=== PATIENT | female | born 1990 | race Caucasian/White ===

== ENCOUNTER 2024-01-02 23:24 | Inpatient (IN) | payer BC ==
[2024-01-02] MEDS ORDERED: Oxytocin/0.9 % Sodium Chloride 30 UNIT/500 ML BAG IV SCH (23:45)
[2024-01-02] MEDS ORDERED: Carboprost Tromethamine 250 MCG/1 mL Vial IM PRN (23:52)
[2024-01-02] MEDS ORDERED: Sodium Chloride 0.9% 2.5 ML Syringe FLUSH PRN (23:52)
[2024-01-02] MEDS ORDERED: Sodium Chloride 0.9% 20 ML SDV IV PRN (23:52)
[2024-01-02] MEDS ORDERED: Sodium Chloride 0.9% 10 ML Syringe FLUSH PRN (23:52)
[2024-01-02] MEDS ORDERED: Lidocaine 1% 50 ML MDV INJECT PRN (23:52)
[2024-01-02] MEDS ORDERED: Water For Irrigation,Sterile 1,000 ML Container IRR PRN (23:52)
[2024-01-02] MEDS ORDERED: Methylergonovine 0.2 MG/1 ML Amp IM PRN (23:52)
[2024-01-02] MEDS ORDERED: Ondansetron 4 MG/2 ML SDV IVPUSH PRN (23:52)
[2024-01-02] MEDS ORDERED: Terbutaline 1 MG/ML SDV SUBCUT PRN (23:52)
[2024-01-02] MEDS ORDERED: Misoprostol 200 MCG Tab PO PRN (23:52)
[2024-01-02] MEDS ORDERED: Tranexamic Acid IN NACL,ISO-OS 1,000 MG in Premix Bag 1 BAG IV PRN (23:52)
[2024-01-03] MEDS: Lactated Ringers 1,000 ML IV SCH (00:43)
[2024-01-03] MEDS: Ampicillin 2 GM in Sodium Chloride 0.9% 100 ML IV ONE (00:43)
[2024-01-03 01:31] LABS: HEMATOCRIT 38.8 % (37.0-47.0); HEMOGLOBIN 13.7 g/dL (12.0-16.0); MEAN CORPUSCULAR HEMOGLOBIN 34.4 pg (28.0-32.0); MEAN CORPUSCULAR HGB CONC 35.3 g/dL (32.0-36.0); MEAN CORPUSCULAR VOLUME 97.5 fL (83.0-99.0); MEAN PLATELET VOLUME 10.9 fL (9.4-12.3); PLATELET COUNT,PLT 226 K/uL (150-400); RED BLOOD CELL COUNT 3.98 M/uL (4.10-5.30); WHITE BLOOD CELL COUNT,WBC 10.35 K/uL (3.9-11.3)
[2024-01-03] MEDS ORDERED: ePHEDrine 50 MG/ML SDV IVPUSH PRN (01:48)
[2024-01-03] MEDS: Nalbuphine 10 MG/0.5 ML Syringe IVPUSH PRN (03:53)
[2024-01-03] MEDS: Oxytocin/0.9 % Sodium Chloride 30 UNIT/500 ML BAG IV SCH (03:55)
[2024-01-03] MEDS: Ampicillin 1 GM in Sodium Chloride 0.9% 50 ML IV SCH (05:32)
[2024-01-03] MEDS: Ropivacaine HCl/PF 400 MG in Premix Bag 1 BAG EPIDUR SCH (06:04)
[2024-01-03] MEDS ORDERED: dexmedeTOMIDine HCl 200 MCG/2 ML SDV ONE (06:08)
[2024-01-03] MEDS ORDERED: Docusate Sodium 100 MG Cap PO PRN (06:38)
[2024-01-03] MEDS ORDERED: Lanolin 100% Cream 7 GM Tube TOP PRN (06:38)
[2024-01-03] MEDS ORDERED: Simethicone 80 MG Tab.Chew PO PRN (06:38)
[2024-01-03] MEDS: Phenylephrine HCl 0.5 MG/5 ML AMP IVPUSH PRN (08:36)
[2024-01-03] MEDS: ePHEDrine 50 MG/ML SDV IVPUSH PRN (11:44)
[2024-01-03] MEDS: Ibuprofen 800 MG Tab PO PRN (21:24)
[2024-01-03] MEDS: Acetaminophen 500 MG Tab PO PRN (21:24)
[2024-01-03] MEDS: Witch Hazel Medicated Pads 40/Jar TOP PRN (21:56)
[2024-01-03] MEDS: Benzocaine/Menthol 20%-0.5% Spray 78 GM Cannister TOP PRN (21:56)
[2024-01-04 06:31] LABS: BASOPHILS ABSOLUTE AUTO 0.05 K/uL (0.00-0.20); BASOPHILS PERCENT AUTO 0.3 % (0.0-1.0); EOSINOPHILS ABSOLUTE AUTO 0.08 K/uL (0.00-0.45); EOSINOPHILS PERCENT AUTO 0.5 % (0.0-6.0); HEMATOCRIT 30.3 % (37.0-47.0); HEMOGLOBIN 10.5 g/dL (12.0-16.0); IMMATURE GRAN ABSOLUTE AUTO 0.09 K/uL (0.00-0.05); IMMATURE GRAN PERCENT AUTO 0.5 % (0.0-0.4); LYMPHOCYTES ABSOLUTE AUTO 1.93 K/uL (1.00-4.80); LYMPHOCYTES PERCENT AUTO 11.1 % (24.0-44.0); MEAN CORPUSCULAR HEMOGLOBIN 34.4 pg (28.0-32.0); MEAN CORPUSCULAR HGB CONC 34.7 g/dL (32.0-36.0); MEAN CORPUSCULAR VOLUME 99.3 fL (83.0-99.0); MEAN PLATELET VOLUME 10.3 fL (9.4-12.3); MONOCYTES ABSOLUTE AUTO 1.14 K/uL (0.00-0.80); MONOCYTES PERCENT AUTO 6.6 % (0.0-8.0); NEUTROPHILS ABSOLUTE AUTO 14.11 K/uL (1.80-7.70); PLATELET COUNT,PLT 175 K/uL (150-400); RED BLOOD CELL COUNT 3.05 M/uL (4.10-5.30)
[2024-01-04] MEDS ORDERED: Witch Hazel Medicated Pads 40/Jar TOP PRN (10:29)
[2024-01-04] MEDS ORDERED: Ibuprofen 800 MG Tab PO PRN (10:29)
[2024-01-04] MEDS ORDERED: Benzocaine/Menthol 20%-0.5% Spray 78 GM Cannister TOP PRN (10:29)
[2024-01-04] MEDS ORDERED: Acetaminophen 500 MG Tab PO PRN (10:29)
[2024-01-04] MEDS ORDERED: Lanolin 100% Cream 7 GM Tube TOP PRN (10:29)
[2024-01-04] MEDS ORDERED: Docusate Sodium 100 MG Cap PO PRN (10:29)
[2024-01-04] MEDS ORDERED: oxyCODONE 5 MG Tab PO PRN (10:29)
[2024-01-05 02:27] VITALS: BP 115/72; PULSE 69
== END 2024-01-04 22:18 | disposition home or self-care (01) | DRG 560 ==
LOC: MW.OBCHECK 23:24 → MW.OB 23:41 → OBSVTOIN 23:52 → MW.OB 23:52 → MW.OBCHECK 23:52 → MW.OB 01-04 00:05
PROVIDERS: ADMIT Obstetrics & Gynecology; ATTEND Obstetrics & Gynecology
PROC: 10E0XZZ Delivery of Products of Conception, External Approach (ICD-10-PCS; principal; 2024-01-03)
PROC: 0HQ9XZZ Repair Perineum Skin, External Approach (ICD-10-PCS; 2024-01-03)
DX: O42.02 Full-term premature rupture of membranes, onset of labor within 24 hours of rupture (principal); O99.02 Anemia complicating childbirth; D62 Acute posthemorrhagic anemia; O99.52 Diseases of the respiratory system complicating childbirth; J45.909 Unspecified asthma, uncomplicated; O69.1XX0 Labor and delivery complicated by cord around neck, with compression, not applicable or unspecified; Z3A.38 38 weeks gestation of pregnancy; Z37.0 Single live birth; O70.0 First degree perineal laceration during delivery
CPT/HCPCS: 01967; 36415; 51702; 59025; 59409; 59414; 85025; 85027; 86592; 86850; 86900; 86901; A9270-GY; J0290; J2300; J2371; J2590; J2795; J3490; J7120